=== PATIENT | female | born 1945 | race Caucasian/White ===

== ENCOUNTER → 2020-01-08 | Outpatient (CLI) | payer MEDICARE ==
[~2020-01-08] MED LIST: AMLO2.5T5 PO
== END | disposition home or self-care (01) ==
LOC: STAR 14:10
PROVIDERS: ATTEND Surgery
DX: Z01.818 Encounter for other preprocedural examination (principal); K80.10 Calculus of gallbladder with chronic cholecystitis without obstruction; I49.8 Other specified cardiac arrhythmias; R94.31 Abnormal electrocardiogram [ECG] [EKG]
CPT/HCPCS: 93005

== ENCOUNTER 2020-01-16 10:52 | Day surgery (SDC) | payer MEDICARE ==
[~2020-01-16] VITALS: Ht 170.2 cm; Wt 72.3 kg
[2020-01-16 11:09] VITALS: BP 170/82
[2020-01-16] MEDS ORDERED: LACTATED RINGERS 1,000 ML IV SCH (11:12)
[2020-01-16] MEDS ORDERED: CHLORHEXIDINE 15 ML UDC MM ONE (11:30)
[2020-01-16] MEDS ORDERED: FENTANYL PF 250 MCG/5ML ONE (11:53)
[2020-01-16] MEDS ORDERED: MIDAZOLAM 1 MG/ML, 2ML ONE (11:53)
[2020-01-16] MEDS ORDERED: LIDOCAINE-MPF 2% ,5ML ONE (11:53)
[2020-01-16] MEDS ORDERED: GLYCOPYRROLATE 0.2MG/1ML, 5ML ONE (11:53)
[2020-01-16] MEDS ORDERED: DEXAMETHASONE 4 MG/ML, 1ML ONE (11:53)
[2020-01-16] MEDS ORDERED: ROCURONIUM 10MG/ML,5ML ONE (11:53)
[2020-01-16] MEDS ORDERED: PROPOFOL 10 MG/ML, 20ML ONE (11:53)
[2020-01-16] MEDS ORDERED: ACETAMINOPHEN 325 MG TABLET PO PRN (12:00)
[2020-01-16] MEDS ORDERED: HALOPERIDOL 5 MG/ML IV PRN (12:00)
[2020-01-16] MEDS ORDERED: LORazepam 2 MG/ML, 1ML IVPush PRN (12:00)
[2020-01-16] MEDS ORDERED: MIDAZOLAM 1 MG/ML, 2ML IV PRN (12:00)
[2020-01-16] MEDS ORDERED: DIAZEPAM 5 MG/ML, 2ML IVPush PRN (12:00)
[2020-01-16] MEDS ORDERED: DIPHENHYDRAMINE 50 MG/ML, 1ML IVPush PRN (12:00)
[2020-01-16] MEDS ORDERED: METOCLOPRAMIDE 5 MG/ML, 2ML IVPush PRN (12:00)
[2020-01-16] MEDS ORDERED: ONDANSETRON 2MG/ML, 2ML IVPush PRN (12:00)
[2020-01-16] MEDS ORDERED: LABETALOL 5MG/ML, 20ML IV PRN (12:00)
[2020-01-16] MEDS ORDERED: ALBUTEROL/IPRATROPIUM 2.5MG/0.5MG, 3 ML NPPB PRN (12:00)
[2020-01-16] MEDS ORDERED: HYDROmorphone 1 MG/ML, 1ML INJ IVPush PRN (12:00)
[2020-01-16] MEDS ORDERED: METHOCARBAMOL 1,000 MG in DEXTROSE 5% 100 ML IV PRN (12:00)
[2020-01-16] MEDS ORDERED: EPHEDRINE 50 MG/ML, 1ML IM PRN (12:00)
[2020-01-16] MEDS ORDERED: HYDROcodone/APAP 7.5-325MG/15ML UDC PO PRN (12:00)
[2020-01-16] MEDS ORDERED: MEPERIDINE/PF 25MG/0.5ML IVPush PRN (12:00)
[2020-01-16] MEDS ORDERED: KETOROLAC 30 MG/1 ML IV PRN (12:00)
[2020-01-16] MEDS ORDERED: OXYcodone 5 MG/5 ML ORAL.SOL UDC PO PRN (12:00)
[2020-01-16] MEDS ORDERED: hydrALAzine 20 MG/ML, 1ML IV PRN (12:00)
[2020-01-16] MEDS ORDERED: EPHEDRINE 50 MG/ML, 1ML IVPush PRN (12:00)
[2020-01-16] MEDS ORDERED: BUPIVACAINE/PF-EPI 0.5% 1:200K ONE (12:18)
[2020-01-16] MEDS ORDERED: CEFAZOLIN 1,000 MG ONE (12:37)
[2020-01-16] MEDS ORDERED: PHENYLEPHRINE 10 MG/ML ONE (12:37)
[2020-01-16] MEDS ORDERED: BUPIVACAINE/PF-EPI 0.5% 1:200K INFIL ONE (12:54)
[2020-01-16] MEDS ORDERED: ACETAMINOPHEN 650 MG/20.3 ML UDC ONE (13:56)
[2020-01-16] MEDS ORDERED: OXYcodone 5 MG/5 ML ORAL.SOL UDC ONE (13:56)
[2020-01-16] MEDS ORDERED: FENTANYL PF 100 MCG/2ML ONE (13:56)
[2020-01-16] MEDS: FENTANYL PF 100 MCG/2ML IV PRN ×2 (13:59→14:09)
== END 2020-01-16 15:20 | disposition home or self-care (01) ==
LOC: OUT 10:52
PROVIDERS: ATTEND Surgery
DX: K80.10 Calculus of gallbladder with chronic cholecystitis without obstruction (principal); Z11.59 Encounter for screening for other viral diseases; K82.8 Other specified diseases of gallbladder; I10 Essential (primary) hypertension; Z79.899 Other long term (current) drug therapy; Z96.643 Presence of artificial hip joint, bilateral; Z90.710 Acquired absence of both cervix and uterus; Z98.49 Cataract extraction status, unspecified eye; Z98.890 Other specified postprocedural states; Z82.49 Family history of ischemic heart disease and other diseases of the circulatory system
CPT/HCPCS: 36415; 47562; 87635; 88304; C1729; C1760; J0690; J1100; J2250; J2370; J2704; J3010; J7120